=== PATIENT | male | born 1955 | race Caucasian/White ===

== ENCOUNTER 2017-04-02 08:45 | Day surgery (SDC) | payer OTHER ==
[~2017-04-02] VITALS: Ht 177.8 cm; Wt 124.3 kg
[~2017-04-02 08:45] MED LIST: ASPIR-LOW81 MG PO; CYCLOBENZAPRINE10 MG PO; DICLOFENAC SODI75 MG PO; DOCUSATE SODIU100 MG PO; DULOXETINE HCL30 MG PO; ENABLEX15 MG PO; FINASTERIDE5 MG PO; FISH OIL 1,0001 EAC2 NG; GABAPENTIN300 MG PO; GLUCOPHAGE500 MG PO; GLUCOSAMINE CH1 EAC2 PO; LIPITOR80 MG PO; LISINOPRIL5 MG PO; METOPROLOL SUCC50 MG PO; NORCO 5-325 TA1 EACH PO; TRAZODONE HCL100 MG PO; ZOLPIDEM TARTRA10 MG PO
--- NOTE | 2017-04-02 13:29 | NUR ---
ICED WATER GIVEN AND CALL LIGHT W/IN REACH. LUNCH ORDERED FROM DIETARY. HARD COPY PRESCRIPTION GIVEN TO SPOUSE.
--- NOTE | 2017-04-02 13:51 | NUR ---
LUNCH ARRIVED. PT SITTING UP IN BED EATING. MORE ICED WATER GIVEN.
--- NOTE | 2017-04-02 14:26 | NUR ---
PT EATS LUNCH AND TOLERATES THAT WELL. PT REQ MORE SOUP. MORE SOUP ORDERED FROM DIETARY. PT UP TO BR W/RN STANDBY. PT AMBULATES WELL AND REPORTS SUCCESSFUL VOID. PT BACK IN BED. MORE ICED WATER GIVEN. SOUP ARRIVES AND PT IS SITTING UP IN BED EATING.
--- NOTE | 2017-04-02 16:05 | NUR ---
PT'S RETURNS AND PT REQ DC HOME. PT REPORTS IMPROVED PAIN AFTER PRN. VERBAL DC INSTRUCTIONS GIVEN AND BOTH PT AND SPOUSE VERBALIZE UNDERSTANDING. PT DRESSES SELF IN PRESENCE OF SPOUSE AND TRANSFERS SELF TO WC AND PERSONAL VEHICLE WELL AND IS DC HOME.
--- NOTE | 2017-04-18 08:26 | OR ---
[facility] [address], [place] [address] Signed DATE OF OPERATION: 04/02/2017 SURGEON: Oxana Hauser MD PREOPERATIVE DIAGNOSIS: Incarcerated umbilical hernia. POSTOPERATIVE DIAGNOSIS: Incarcerated umbilical hernia. PROCEDURE: Umbilical herniorrhaphy with intraabdominal Ventralex mesh. ESTIMATED BLOOD LOSS: None. INDICATIONS: Ryan is a 61-year-old, obese, diabetic gentleman, who happened to be in the years ago. He works at the [employer] for many years. The last 5 years, he has noticed a painful nonreducible lump at his umbilicus. He finally went to his primary care provider. He was then asked to see me in consultation. I had explained to Ryan the nature of an umbilical hernia. I gave him a brochure here in the office. We discussed primary suture repair versus mesh repair. He also understands expected intraop and postop course. There is risk of surgery including, but not limited to, bleeding, infection, scarring, change in contour of the skin, damage to bowel, infection of mesh requiring removal, recurrent hernias, and chronic pain. He had expressed understanding and wished to proceed. PROCEDURE NOTE: I met with Ryan and his in the preop area. It was easy to identify the umbilical hernia. After this, he was taken into the operating room and placed in the supine position under general endotracheal tube anesthesia. He was given preoperative antibiotics along with subcutaneous heparin. SCDs were utilized. He was then prepped and draped in the usual sterile fashion. We utilized our standard transverse infraumbilical incision. We carried that down around the hernia defect bluntly and with the cautery. The hernia sac was excised and passed off the field. We utilized a piece of round Ventralex mesh, which we placed inside the abdomen, brought that up flat against posterior abdominal wall. We closed the fascial defect transversely with a running #1 Prolene suture and several passes of the suture went through the tab to help hold it in place. The tab was then cut flush with the abdominal wall and discarded. Local anesthetic was copiously injected in abdominal wall. The wound was then irrigated and suctioned out until clear. The umbilical skin was held down to the midline fascia with an interrupted 2-0 PDS suture. The skin and dermis were then reapproximated with interrupted 3-0 subcuticular Monocryl sutures. Dry gauze and tape were then applied. Electronically Signed By: OXANA HAUSER MD 04/18/17 0826 PATIENT NAME: RYAN LITTLE OPERATIVE REPORT DATE OF : 51 PHYSICIAN: OXANA HAUSER MD REPORT #: [id number] REPORT IS CONFIDENTIAL AND NOT TO BE RELEASED WITHOUT AUTHORIZATION [facility] [address] [place] [id number] Signed Ryan was awakened from his anesthesia, extubated in the OR, and taken to recovery room in stable condition. MD MARIA M Mejia/ABDULLAHI /[id number] cc: Caitlin Oneill NP Electronically Signed By: OXANA HAUSER MD 04/18/17 0826 PATIENT NAME: SIDNEYCHILDERS SHAYY OPERATIVE REPORT DATE OF : 51 PHYSICIAN: OXANA HAUSER MD REPORT #: [id number] REPORT IS CONFIDENTIAL AND NOT TO BE RELEASED WITHOUT AUTHORIZATION
== END 2017-04-02 15:05 | disposition home or self-care (01) ==
LOC: DS 08:45
PROVIDERS: Colon & Rectal Surgery
PROC: 0WUF0JZ Supplement Abdominal Wall with Synthetic Substitute, Open Approach (ICD-10-PCS; principal; 2017-04-02 10:45)
DX: K42.0 Umbilical hernia with obstruction, without gangrene (principal); F41.0 Panic disorder [episodic paroxysmal anxiety]; E11.9 Type 2 diabetes mellitus without complications; E78.00 Pure hypercholesterolemia, unspecified; I10 Essential (primary) hypertension; I25.2 Old myocardial infarction; G47.30 Sleep apnea, unspecified; F17.210 Nicotine dependence, cigarettes, uncomplicated; E66.9 Obesity, unspecified; Z79.82 Long term (current) use of aspirin; Z79.899 Other long term (current) drug therapy; Z99.89 Dependence on other enabling machines and devices; Z98.890 Other specified postprocedural states; Z79.84 Long term (current) use of oral hypoglycemic drugs; Z68.39 Body mass index [BMI] 39.0-39.9, adult
CPT/HCPCS: 00750; C1781; J0690; J1644; J2405; J2704; J2710; J3010; J7120